=== PATIENT | male | born 1960 | race Caucasian/White ===

== ENCOUNTER 2019-04-10 09:56 | Inpatient (IN) | payer MEDICAID, SELFPAY ==
[~2019-04-10] VITALS: Ht 180.3 cm; Wt 105.8 kg
[2019-04-14 07:19] VITALS: BP 120/79
== END 2019-04-14 13:24 | disposition home or self-care (01) | DRG 433 ==
LOC: ED 12:22 → EDIP 13:24 → 4EST 15:11
PROVIDERS: ADMIT Internal Medicine; ATTEND Internal Medicine
DX: K70.10 Alcoholic hepatitis without ascites (principal); F10.231 Alcohol dependence with withdrawal delirium; E87.2 Acidosis; G62.1 Alcoholic polyneuropathy; E87.6 Hypokalemia; R73.9 Hyperglycemia, unspecified; D75.89 Other specified diseases of blood and blood-forming organs; D72.819 Decreased white blood cell count, unspecified; D69.6 Thrombocytopenia, unspecified; D64.9 Anemia, unspecified; I10 Essential (primary) hypertension; M10.9 Gout, unspecified; K29.70 Gastritis, unspecified, without bleeding; R56.9 Unspecified convulsions; S01.512A Laceration without foreign body of oral cavity, initial encounter; X58.XXXA Exposure to other specified factors, initial encounter; Z91.14 Patient's other noncompliance with medication regimen; Y93.89 Activity, other specified; Y92.89 Other specified places as the place of occurrence of the external cause; Y99.8 Other external cause status
CPT/HCPCS: 36415; 96361; 99291; J7042; 80053; 80069; 80074; 80307; 82140; 82607; 82803; 83605; 83690; 83735; 84100; 85025; 85610; 93005; 96365; 96366; 96375; G0378; J2405; J3411; J3475; J3480; C9113; J2060; J7030; J7050

== ENCOUNTER 2019-10-17 08:03 | Inpatient (IN) | payer MEDICAID ==
[~2019-10-17] VITALS: Ht 180.3 cm; Wt 104.1 kg
[~2019-10-17 08:03] MED LIST: CHLO10CA6 PO; FOLI-17 PO; GABA300C10 PO; LISI-167 PO; PANT40TA5 PO; PRED-402 PO; THIA100T67 PO
--- NOTE | 2019-10-17 08:07 | NUR ---
BIB EMS FROM [facility] FOR C/O PALPITATIONS STARTED "A LONG TIME AGO". PT ALSO SAYS IT ALL STARTED W/ COUGH AND CONGESTION. WAS DX W/ PNA. WAS GIVEN 4 ABX LAST ONE WAS LEVOFLOXACIN. HAS ALREADY BEEN ON LEVAQUIN, BACTRIM, AND AUGMENTIN W/O RELIEF. STILL HAVING COUGH, CONGESTION. PALPITATIONS SHOWS A FIB. DENIES HX. NOT ON ANTICOAGS. DENIES CP. C/O SOB. VS PERIOPERATIVE MANAGER BS 113, BP 173/100, HR 120-180. MONITORS APPLIED. EKG COMPLETED. PT RESTING ON GURNEY. +COUGH NOTED. DESTINEY VILLARREAL AT BEDSIDE.
[2019-10-17] MEDS ORDERED: AMLO10TA8 PO (08:22)
[2019-10-17] MEDS ORDERED: GABA600T7 PO (08:22)
[2019-10-17] MEDS ORDERED: BENZ100C PO (08:22)
[2019-10-17] MEDS ORDERED: FLUT1DIS IH (08:22)
[2019-10-17] MEDS ORDERED: ALLO300T PO (08:22)
[2019-10-17] MEDS ORDERED: OMEP-110 PO (08:22)
--- NOTE | 2019-10-17 08:24 | NUR ---
PER DESTINEY VILLARREAL NO NEED FOR BLOOD CULTURES AT THIS TIME.
[2019-10-17 08:39] LABS: BASOPHILS # (AUTO) 0.03 x10^3/uL (0-0.1); BASOPHILS % (AUTO) 0 % (0-1); EOSINOPHILS # (AUTO) 0.06 x10^3/uL (0-0.4); EOSINOPHILS % (AUTO) 1 % (1-7); LYMPHOCYTES # (AUTO) 1.09 x10^3/uL (1-3.4); LYMPHOCYTES % (AUTO) 11 % (22-44); MD NO; MEAN CORPUSCULAR HEMOGLOBIN 30.2 pg (27.5-34.5); MEAN CORPUSCULAR HGB CONC 32.7 g/dL (33.2-36.2); MEAN CORPUSCULAR VOLUME 92.4 fL (81-97); MEAN PLATELET VOLUME 7.9 fL (7.4-10.4); MONOCYTES % (AUTO) 6 % (2-9); NEUTROPHILS # (AUTO) 8.47 x10^3/uL (1.8-6.8); NEUTROPHILS % (AUTO) 83 % (42-75); PLATELET COUNT 195 x10^3/uL (130-400); RED CELL DISTRIBUTION WIDTH 14.8 % (9.4-14.8)
[2019-10-17 08:48] LABS: INTERNATIONAL NORMALIZED RATIO 0.96 (0.93-1.1); PROTHROMBIN TIME 10.2 Seconds (9.6-11.5)
[2019-10-17 08:51] LABS: ALBUMIN 3.6 g/dL (3.4-5.0); ANION GAP 9 mmol/L (5-15); CALCIUM 8.6 mg/dL (8.5-10.1); CHLORIDE 103 mmol/L (98-107)
--- NOTE | 2019-10-17 08:54 | NUR ---
REPORT GIVEN TO ALEXANDRIA RODNEY.
[2019-10-17 08:55] LABS: CREATININE 0.73 mg/dL (0.7-1.3); TROPONIN I < 0.015 ng/mL (0.000-0.045)
--- NOTE | 2019-10-17 09:53 | NUR ---
PT UP TO RESTROOM, NO ASSISTANCE NECESSARY. UPDATED ON PLAN OF CARE. VERBALIZES UNDERSTANDING, DENIES ANY FURTHER NEEDS OR CONCERNS AT THIS TIME. CALL LIGHT IN REACH.
[2019-10-17] MEDS ORDERED: DILTIAZEM 5 MG/ML, 10ML ONE (11:54)
[2019-10-17] MEDS ORDERED: ASPIRIN 81 MG TABLET CHEW ONE (11:54)
[2019-10-17] MEDS ORDERED: LORazepam 2 MG/ML, 1ML IVPush STA (11:58)
[2019-10-17] MEDS ORDERED: DILTIAZEM 5 MG/ML, 5ML IV ONE (12:00)
[2019-10-17] MEDS ORDERED: ASPIRIN 81 MG TABLET CHEW PO ONE (12:00)
[2019-10-17] MEDS ORDERED: HEPARIN 5,000 UNITS/ML, 1ML IV ONE ×2 (12:00→16:05)
[2019-10-17] MEDS ORDERED: HEPARIN 25,000 UNITS/250ML PMX 250 ML IV PRN (12:00)
[2019-10-17] MEDS ORDERED: LORazepam 2 MG/ML, 1ML ONE (12:00)
[2019-10-17] MEDS: DILTIAZEM 125 MG in SODIUM CHLORIDE 0.9% 100 ML IV SCH ×2 (12:25→21:50)
[2019-10-17] MEDS ORDERED: CHLORDIAZEPOXIDE 10 MG CAPSULE PO PRN (12:30)
[2019-10-17] MEDS ORDERED: morphine SULFATE 10 MG/ML, 1ML IVPush PRN (12:30)
[2019-10-17] MEDS ORDERED: CHLORDIAZEPOXIDE 25 MG CAPSULE PO PRN ×3 (12:30)
[2019-10-17] MEDS ORDERED: FUROSEMIDE 40 MG/4 ML IV ONE (12:30)
[2019-10-17] MEDS ORDERED: LORazepam 2 MG/ML, 1ML IVPush ONE (12:30)
[2019-10-17 12:42] LABS: ALBUMIN 3.6 g/dL (3.4-5.0)
--- NOTE | 2019-10-17 12:50 | NUR ---
REPORT TO CRISSY MEDINA RN. PT UPDATED ON PLAN OF CARE. SECOND IV STARTED FOR HEPARIN DRIP. PT DENIES ANY NEEDS OR CONCERNS AT THIS TIME. CALL LIGHT IN REACH. AWAITING TRANSPORT AT THIS TIME.
[2019-10-17 12:53] LABS: ALANINE AMINOTRANSFERASE 29 U/L (12-78); ALKALINE PHOSPHATASE 113 U/L (45-117); BILIRUBIN, DIRECT 0.2 mg/dL (0.1-0.2); BILIRUBIN,INDIRECT 0.5 mg/dL (0.0-2.0); BILIRUBIN,TOTAL 0.7 mg/dL (0.2-1.0); TOTAL PROTEIN 8.3 g/dL (6.4-8.2)
[2019-10-17] MEDS ORDERED: FUROSEMIDE 40 MG/4 ML ONE (12:53)
[2019-10-17 14:15] VITALS: BP 120/63
[2019-10-17 15:59] LABS: TROPONIN I < 0.015 ng/mL (0.000-0.045)
[2019-10-17 17:17] LABS: AMPHETAMINE SCREEN, URINE Negative (Negative); BARBITURATE SCREEN, URINE Negative (Negative); BENZODIAZEPINE SCREEN, URINE Negative (Negative); CANNABINOID SCREEN, URINE Negative (Negative); COCAINE SCREEN, URINE Negative (Negative); METHADONE SCREEN, URINE Negative (Negative); OPIATE SCREEN, URINE Negative (Negative)
[2019-10-17 18:36] VITALS: BP 130/81
[2019-10-17] MEDS: METOPROLOL TARTRATE 25 MG TABLET PO SCH (18:37)
[2019-10-17 20:06] LABS: TROPONIN I < 0.015 ng/mL (0.000-0.045)
[2019-10-17 20:29] VITALS: BP 146/84
[2019-10-17] MEDS: HEPARIN 5,000 UNITS/ML, 1ML IV PRN (23:00)
[2019-10-18 01:42] VITALS: BP 122/71
[2019-10-18 05:24] LABS: BASOPHILS # (AUTO) 0.03 x10^3/uL (0-0.1); BASOPHILS % (AUTO) 1 % (0-1); EOSINOPHILS # (AUTO) 0.04 x10^3/uL (0-0.4); EOSINOPHILS % (AUTO) 1 % (1-7); LYMPHOCYTES # (AUTO) 0.71 x10^3/uL (1-3.4); LYMPHOCYTES % (AUTO) 13 % (22-44); MD NO; MEAN CORPUSCULAR VOLUME 90.8 fL (81-97); MEAN PLATELET VOLUME 8.6 fL (7.4-10.4); MONOCYTES # (AUTO) 0.63 x10^3/uL (0.2-0.8); MONOCYTES % (AUTO) 11 % (2-9); NEUTROPHILS # (AUTO) 4.26 x10^3/uL (1.8-6.8); NEUTROPHILS % (AUTO) 75 % (42-75); PLATELET COUNT 144 x10^3/uL (130-400); RED BLOOD COUNT 4.34 x10^6/uL (4.38-5.82)
[2019-10-18 05:27] LABS: ANION GAP 8 mmol/L (5-15); CALCIUM 8.5 mg/dL (8.5-10.1); CHLORIDE 102 mmol/L (98-107)
[2019-10-18 05:30] LABS: CHOL/HDL RATIO 3.6; CHOLESTEROL, TOTAL 193 mg/dL (140-239); CREATININE 0.76 mg/dL (0.7-1.3); HDL CHOL % 27 % (26-37); HDL CHOLESTEROL (DIRECT) 53 mg/dL (40-60); LDL CHOLESTEROL,CALCULATED 119 mg/dL (54-169); LDL/HDL RATIO 2.2 (0.5-3.0); TRIGLYCERIDES 105 mg/dL (50-200); VLDL CHOLESTEROL 21 mg/dL (0-25)
[2019-10-18] MEDS: HEPARIN 5,000 UNITS/ML, 1ML IV PRN (05:38)
[2019-10-18] MEDS: ACETAMINOPHEN 325 MG TABLET PO PRN ×2 (05:41→21:50)
[2019-10-18] MEDS: METOPROLOL TARTRATE 25 MG TABLET PO SCH ×4 (05:42→21:48)
[2019-10-18 07:50] VITALS: BP 100/66
[2019-10-18] MEDS: THIAMINE 100MG TABLET PO SCH (09:36)
[2019-10-18] MEDS: FUROSEMIDE 40 MG/4 ML IV SCH (09:36)
[2019-10-18] MEDS: FOLIC ACID 1 MG TABLET PO SCH (09:37)
[2019-10-18] MEDS: APIXABAN 5 MG TABLET PO SCH ×2 (10:37→21:48)
[2019-10-18] MEDS ORDERED: ALBUTEROL SULFATE 2.5 MG/3 ML ONE (10:52)
[2019-10-18] MEDS ORDERED: ALBUTEROL SULFATE 2.5 MG/3 ML NPPB PRN (12:30)
[2019-10-18 14:25] VITALS: BP 116/73
[2019-10-18] MEDS ORDERED: DIPHENHYDRAMINE 50 MG CAPSULE PO PRN (20:30)
[2019-10-18 20:58] VITALS: BP 110/77
[2019-10-19 03:59] VITALS: BP 141/100
[2019-10-19] MEDS: METOPROLOL TARTRATE 25 MG TABLET PO SCH (04:22)
[2019-10-19 07:17] VITALS: BP 106/70
[2019-10-19] MEDS ORDERED: REGADENOSON 0.4 MG/5 ML SYRINGE ONE (08:37)
[2019-10-19] MEDS: APIXABAN 5 MG TABLET PO SCH ×2 (10:24→20:55)
[2019-10-19] MEDS: FUROSEMIDE 40 MG/4 ML IV SCH (10:25)
[2019-10-19] MEDS: FOLIC ACID 1 MG TABLET PO SCH (10:26)
[2019-10-19] MEDS: METOPROLOL SUCCINATE 100 MG TAB.ER.24H PO SCH (10:28)
[2019-10-19] MEDS: THIAMINE 100MG TABLET PO SCH (10:29)
[2019-10-19] MEDS: ACETAMINOPHEN 325 MG TABLET PO PRN (11:54)
[2019-10-19] MEDS: FLUTICASONE NASAL SPRAY 16GM NAS SCH (12:30)
[2019-10-19] MEDS: PANTOPROZOLE 40MG TABLET PO SCH (12:50)
[2019-10-19] MEDS: LORATADINE 10 MG TABLET PO SCH (12:50)
[2019-10-19 13:03] VITALS: BP 121/81
[2019-10-19 15:30] VITALS: BP 109/77
[2019-10-19 19:23] VITALS: BP 124/78
[2019-10-19] MEDS: GUAIFENESIN ER 600 MG TABLET PO SCH (20:54)
[2019-10-19] MEDS: DIPHENHYDRAMINE 50 MG CAPSULE PO SCH (22:06)
[2019-10-20 01:40] VITALS: BP 115/80
[2019-10-20] MEDS ORDERED: DIGOXIN 0.25 MG/ML, 2ML IVPush ONE ×2 (02:00→08:23)
[2019-10-20] MEDS: PANTOPROZOLE 40MG TABLET PO SCH (06:25)
[2019-10-20] MEDS: METOPROLOL SUCCINATE 100 MG TAB.ER.24H PO SCH (06:25)
[2019-10-20 06:58] VITALS: BP 121/84
[2019-10-20] MEDS: DIGOXIN 0.25 MG/ML, 2ML IVPush SCH ×3 (08:58→22:30)
[2019-10-20] MEDS: FUROSEMIDE 40 MG/4 ML IV SCH (08:58)
[2019-10-20] MEDS: THIAMINE 100MG TABLET PO SCH (08:58)
[2019-10-20] MEDS: APIXABAN 5 MG TABLET PO SCH ×2 (08:58→22:30)
[2019-10-20] MEDS: LORATADINE 10 MG TABLET PO SCH (08:58)
[2019-10-20] MEDS: GUAIFENESIN ER 600 MG TABLET PO SCH ×2 (08:58→22:30)
[2019-10-20] MEDS: FOLIC ACID 1 MG TABLET PO SCH (08:59)
[2019-10-20] MEDS: FLUTICASONE NASAL SPRAY 16GM NAS SCH (11:50)
[2019-10-20] MEDS: ALLOPURINOL 300 MG TABLET PO SCH (11:50)
[2019-10-20 12:02] VITALS: BP 104/67
[2019-10-20 14:48] VITALS: BP 117/74
[2019-10-20 18:51] VITALS: BP 103/72
[2019-10-20] MEDS: GABAPENTIN 300 MG CAPSULE PO SCH (22:30)
[2019-10-20] MEDS: DIPHENHYDRAMINE 50 MG CAPSULE PO SCH (22:30)
[2019-10-21 01:53] VITALS: BP 109/68
[2019-10-21 05:19] LABS: BASOPHILS # (AUTO) 0.02 x10^3/uL (0-0.1); BASOPHILS % (AUTO) 0 % (0-1); EOSINOPHILS # (AUTO) 0.15 x10^3/uL (0-0.4); EOSINOPHILS % (AUTO) 3 % (1-7); LYMPHOCYTES # (AUTO) 1.21 x10^3/uL (1-3.4); LYMPHOCYTES % (AUTO) 24 % (22-44); MD NO; MEAN CORPUSCULAR HEMOGLOBIN 30.6 pg (27.5-34.5); MEAN CORPUSCULAR HGB CONC 33.4 g/dL (33.2-36.2); MEAN CORPUSCULAR VOLUME 91.5 fL (81-97); MEAN PLATELET VOLUME 8.5 fL (7.4-10.4); MONOCYTES # (AUTO) 0.71 x10^3/uL (0.2-0.8); MONOCYTES % (AUTO) 14 % (2-9); NEUTROPHILS % (AUTO) 59 % (42-75); PLATELET COUNT 143 x10^3/uL (130-400); RED BLOOD COUNT 4.98 x10^6/uL (4.38-5.82); RED CELL DISTRIBUTION WIDTH 14.5 % (9.4-14.8)
[2019-10-21 05:25] LABS: ANION GAP 8 mmol/L (5-15); CALCIUM 8.8 mg/dL (8.5-10.1); CHLORIDE 105 mmol/L (98-107)
[2019-10-21 05:41] LABS: CREATININE 0.74 mg/dL (0.7-1.3)
[2019-10-21] MEDS: METOPROLOL SUCCINATE 100 MG TAB.ER.24H PO SCH (06:00)
[2019-10-21] MEDS: PANTOPROZOLE 40MG TABLET PO SCH (06:00)
[2019-10-21 07:35] VITALS: BP 124/74
[2019-10-21] MEDS: ALLOPURINOL 300 MG TABLET PO SCH (08:08)
[2019-10-21] MEDS: APIXABAN 5 MG TABLET PO SCH (08:08)
[2019-10-21] MEDS: THIAMINE 100MG TABLET PO SCH (08:08)
[2019-10-21] MEDS: GABAPENTIN 300 MG CAPSULE PO SCH (08:09)
[2019-10-21] MEDS: GUAIFENESIN ER 600 MG TABLET PO SCH (08:09)
[2019-10-21] MEDS: FOLIC ACID 1 MG TABLET PO SCH (08:09)
[2019-10-21] MEDS: LORATADINE 10 MG TABLET PO SCH (08:09)
[2019-10-21] MEDS: FLUTICASONE NASAL SPRAY 16GM NAS SCH (08:10)
[2019-10-21] MEDS ORDERED: POTASSIUM CHLORIDE 20 MEQ TAB.ER.PRT PO SCH (08:30)
[2019-10-21] MEDS ORDERED: FUROSEMIDE 40 MG TABLET PO SCH (09:00)
[2019-10-21] MEDS ORDERED: DIGOXIN 0.25 MG TABLET PO SCH (09:30)
[2019-10-21] MEDS ORDERED: LEVOFLOXACIN 750 MG TABLET PO SCH (09:30)
[2019-10-21] MEDS ORDERED: METO-95 PO (09:54)
[2019-10-21] MEDS ORDERED: FLUT16SP24 NAS (09:54)
[2019-10-21] MEDS ORDERED: LEVO750T26 PO (09:54)
[2019-10-21] MEDS ORDERED: APIX5TAB PO (09:54)
[2019-10-21] MEDS ORDERED: DIGO250T3 PO (09:54)
[2019-10-21] MEDS ORDERED: PRED20TA PO (09:54)
== END 2019-10-21 12:30 | disposition home or self-care (01) | DRG 309 ==
LOC: ED 11:58 → EDIP 11:59 → ED 12:08 → 5SO 16:00 → DCLOUNGE 10-21 12:28
PROVIDERS: ADMIT Internal Medicine Infectious Disease; ATTEND Hospitalist
DX: I48.91 Unspecified atrial fibrillation (principal); D68.69 Other thrombophilia; F10.239 Alcohol dependence with withdrawal, unspecified; I50.30 Unspecified diastolic (congestive) heart failure; E78.5 Hyperlipidemia, unspecified; Y90.9 Presence of alcohol in blood, level not specified; I08.1 Rheumatic disorders of both mitral and tricuspid valves; I11.0 Hypertensive heart disease with heart failure; I27.20 Pulmonary hypertension, unspecified; J42 Unspecified chronic bronchitis; K21.9 Gastro-esophageal reflux disease without esophagitis; M10.9 Gout, unspecified; Z87.891 Personal history of nicotine dependence; Z91.030 Bee allergy status
CPT/HCPCS: 36415; 71045; 78452; 80048; 80061; 80076; 80162; 80307; 82040; 83735; 83880; 84100; 84443; 84484; 85025; 85520; 85610; 85730; 87070; 87077; 87205; 93005; 93017; 93306; 96374; 96375; 99291; G0378; J1644; J1940; J2785; A9502; C9898; J1160; J2060; J7512

== ENCOUNTER 2019-12-30 11:52 | Emergency (ER) | payer MEDICAID ==
[~2019-12-30] VITALS: Ht 180.3 cm; Wt 102.6 kg
[~2019-12-30 11:52] MED LIST changes: +ALLO300T PO; +AMLO10TA8 PO; +APIX5TAB PO; +BENZ100C PO; +DIGO250T3 PO; +FLUT16SP24 NAS; +FLUT1DIS IH; +GABA600T7 PO; +LEVO750T26 PO; +METO-95 PO; +OMEP-110 PO; +PRED20TA PO
[2019-12-30 12:42] VITALS: BP 162/99
--- NOTE | 2019-12-30 13:02 | NUR ---
DRAMATIC DIRECTOR: PT AMBULATORY TO ROOM FROM LOBBY
--- NOTE | 2019-12-30 13:52 | NUR ---
PT D/C WITH D/C SUMMARY AND SCRIPTS. ALL QUESTIONS ANSWERED. PT AMBULATES WITH SLOW AND STEADY GAIT WITH WALKER FOR D/C HOME WITH SPOUSE. PT DENIES ANY OTHER NEEDS PERTAINING TO THIS VISIT.
== END 2019-12-30 13:58 | disposition home or self-care (01) ==
LOC: ED 13:11
DX: B34.9 Viral infection, unspecified (principal); R05 Cough; I10 Essential (primary) hypertension; I48.91 Unspecified atrial fibrillation
CPT/HCPCS: 71045; 99283

== ENCOUNTER 2020-08-20 21:03 | Emergency (ER) | payer MEDICAID ==
[~2020-08-20] VITALS: Ht 180.3 cm; Wt 100.0 kg
[~2020-08-20 21:03] MED LIST changes: +AMLO-211 PO; -AMLO10TA8 PO; -PANT40TA5 PO; +PANT40TA6 PO
--- NOTE | 2020-08-20 21:13 | NUR ---
PT BIB [facility] FOR ETOH PT WAS OUTSIDE OF [facility], LAYING IN THE STREET. PT REPORTS DRINKING BEERS TODAY STATES "I HAD 100" PT DENIES ANY FALLS, WAS HYPOTENSIVE UPON [facility] ARRIVAL RECEIVED 550MLS NS ENROUTE. PT HAS H OF A-FIB AND GOUT., PT PLACED ON SPO2/BP/ECG MONITORING. CHEY ELIZABETH MD AT BS FOR EVAL AND POC
--- NOTE | 2020-08-20 21:28 | NUR ---
pt to ct via cynthia at this time. nad, no change in condition, wctm.
[2020-08-20] MEDS ORDERED: SODIUM CHLORIDE FLUSH 10ML SYR IVF ONE (21:30)
[2020-08-20] MEDS ORDERED: SODIUM CHLORIDE 0.9% 1,000ML IVBOLUS ONE (21:30)
[2020-08-20 22:00] LABS: BASOPHILS % (AUTO) 1 % (0-1); EOSINOPHILS % (AUTO) 3 % (1-7); LYMPHOCYTES % (AUTO) 33 % (22-44); MEAN CORPUSCULAR HEMOGLOBIN 31.7 pg (27.5-34.5); MEAN CORPUSCULAR HGB CONC 33.1 g/dL (33.2-36.2); MEAN PLATELET VOLUME 8.2 fL (7.4-10.4); MONOCYTES % (AUTO) 10 % (2-9); NEUTROPHILS % (AUTO) 54 % (42-75); PLATELET COUNT 180 x10^3/uL (130-400); RED BLOOD COUNT 3.91 x10^6/uL (4.38-5.82)
[2020-08-20 22:02] LABS: MD NO
[2020-08-20 22:11] LABS: ALANINE AMINOTRANSFERASE 18 U/L (12-78); ALBUMIN 3.1 g/dL (3.4-5.0); ANION GAP 8 mmol/L (5-15); CALCIUM 7.9 mg/dL (8.5-10.1); CHLORIDE 103 mmol/L (98-107); CREATININE 0.82 mg/dL (0.7-1.3)
[2020-08-20 22:21] LABS: ALKALINE PHOSPHATASE 99 U/L (45-117); BILIRUBIN,TOTAL 0.3 mg/dL (0.2-1.0); TOTAL PROTEIN 6.7 g/dL (6.4-8.2)
--- NOTE | 2020-08-21 | NUR ---
pt nad, resting on hospital bed, appears comfortable, eyes closed, even and unlabored respirations. wctm. waiting for admit bed
[2020-08-21 00:55] VITALS: BP 99/66
--- NOTE | 2020-08-21 00:56 | NUR ---
Patient/Caregiver given discharge instructions and they have confirmed that they understand the instructions. Patient ambulatory with steady gait WITH CANE THAT HE USES AT BASELINE. PT NAD, DENIES ADDITIONAL QUESTIONS OR NEEDS AT THIS TIME. PROVIDED TAXI VOUCHER, NO PERSONAL BELONGINGS LEFT IN ROOM AFTER DC.
--- NOTE | 2020-08-21 01:49 | NUR ---
PT REFUSED TO LEAVE DC DESK STATING THAT "MY MEDS AND WHEELCHAIR WERE WITH ME", RN INFORMED PT THAT THERE WASNT A WHEELCHAIR BROUGHT IN WITH HIM AND THERE WAS ONLY A CANE. PT NAD, PT STATING "THIS IS RIDICULOUS, WHERE ARE MY MEDICAL RECORDS" RN INFORMED PT THE PROCESS TO RECEIVE MEDICAL RECORDS.
== END 2020-08-21 00:57 ==
LOC: ED 22:46
DX: S09.90XA Unspecified injury of head, initial encounter (principal); F10.229 Alcohol dependence with intoxication, unspecified; I10 Essential (primary) hypertension; I48.20 Chronic atrial fibrillation, unspecified; Y90.0 Blood alcohol level of less than 20 mg/100 ml; W19.XXXA Unspecified fall, initial encounter; Y93.89 Activity, other specified; Y92.89 Other specified places as the place of occurrence of the external cause; Y99.8 Other external cause status
CPT/HCPCS: 36415; 70450; 80053; 80320; 84443; 85025; 93005; 96360; 96361; 99285; J7030; G0480

== ENCOUNTER 2021-05-27 17:33 | Inpatient (IN) | payer MEDICAID ==
[~2021-05-27] VITALS: Ht 180.3 cm; Wt 105.8 kg
[~2021-05-27 17:33] MED LIST changes: -FOLI-17 PO; +FOLI1TAB32 PO
--- NOTE | 2021-05-27 17:45 | NUR ---
[email or web address]
[2021-05-27] MEDS ORDERED: ACETAMINOPHEN 500 MG TABLET ONE ×2 (17:57→18:22)
[2021-05-27] MEDS ORDERED: SODIUM CHLORIDE FLUSH 10ML SYR IVF ONE ×2 (18:00→18:30)
[2021-05-27] MEDS ORDERED: SODIUM CHLORIDE 0.9% 1,000ML IVBOLUS ONE (18:00)
[2021-05-27] MEDS ORDERED: ACETAMINOPHEN 500 MG TABLET PO ONE (18:00)
[2021-05-27] MEDS ORDERED: DILTIAZEM 5 MG/ML, 5ML ONE ×2 (18:11→18:43)
[2021-05-27] MEDS ORDERED: LORazepam 2 MG/ML, 1ML ONE (18:15)
--- NOTE | 2021-05-27 18:15 | NUR ---
PLACED ON PRECISION LATHE OPERATOR, PIVS PLACED ERP TO BEDSIDE 20MG OF DILTAZEM VERBAL ORDERS RECEIVED-ADMINISTERED IMMEDIATELY. HR TO 130 WITHIN 30 SECONDS LAB AT BEDSIDE FOR BLOOD CULTURES X 2, LACTIC, FULL SET OF LABS
--- NOTE | 2021-05-27 18:27 | NUR ---
ABX/APAP/ATIVAN ADMINISTERED PER EMAR AFTER BLOOD CULTURES DRAWN
[2021-05-27 18:30] LABS: BASOPHILS % (AUTO) 0 % (0-1); EOSINOPHILS % (AUTO) 0 % (1-7); LYMPHOCYTES % (AUTO) 4 % (22-44); MEAN CORPUSCULAR HEMOGLOBIN 30.4 pg (27.5-34.5); MEAN CORPUSCULAR HGB CONC 33.2 g/dL (33.2-36.2); MEAN PLATELET VOLUME 8.9 fL (7.4-10.4); MONOCYTES % (AUTO) 7 % (2-9); NEUTROPHILS % (AUTO) 89 % (42-75); PLATELET COUNT 123 x10^3/uL (130-400); RED BLOOD COUNT 4.23 x10^6/uL (4.38-5.82); RED CELL DISTRIBUTION WIDTH 20.1 % (9.4-14.8)
[2021-05-27] MEDS ORDERED: DILTIAZEM 5 MG/ML, 5ML IV ONE (18:30)
[2021-05-27] MEDS ORDERED: VANCOMYCIN PER PHARMACY MC ONE (18:30)
[2021-05-27] MEDS ORDERED: ACETAMINOPHEN 325 MG TABLET PO ONE (18:30)
[2021-05-27] MEDS ORDERED: PIPERACILLIN/TAZO 3.375 GM in DEXTROSE 5% 50 ML IVPB ONE (18:30)
[2021-05-27] MEDS ORDERED: VANCOMYCIN 2,500 MG in SODIUM CHLORIDE 0.9% 500 ML IV ONE (18:30)
[2021-05-27] MEDS ORDERED: LORazepam 2 MG/ML, 1ML IVPush ONE (18:30)
--- NOTE | 2021-05-27 18:43 | NUR ---
HR REBOUNDED TO MORE ERRATIC 130-170. ERP ASKED FOR DILTAZEM DRIP. ORDERS RECEIVED FOR ADDITIONAL 20MG OF DILT IVP
[2021-05-27 18:44] LABS: ALANINE AMINOTRANSFERASE 70 U/L (12-78); ALBUMIN 2.9 g/dL (3.4-5.0); ANION GAP 11 mmol/L (5-15); CHLORIDE 90 mmol/L (98-107); CREATININE 0.87 mg/dL (0.7-1.3)
[2021-05-27 18:48] LABS: ALKALINE PHOSPHATASE 96 U/L (45-117); BILIRUBIN,TOTAL 2.6 mg/dL (0.2-1.0); TOTAL PROTEIN 7.3 g/dL (6.4-8.2)
[2021-05-27] MEDS ORDERED: DILTIAZEM 5 MG/ML, 5ML IVPush ONE ×2 (19:00)
--- NOTE | 2021-05-27 19:20 | NUR ---
NEED FOR MORE IVF DISCUSSED WITH ERP IN R/T ELEVATED LACTATE : PLAN ONLY TO SLOWLY ADMIN FLUIDS PATIENTS SODIUM 120 AND HR, B/P STABLE
--- NOTE | 2021-05-27 19:40 | NUR ---
HR NOW 90-100 US AT BEDSIDE RLE CELLULITUS ENCIRCLED WITH SKIN MARKER AND TIMED PATIENT UPDATED ON ESTIMATED POC
[2021-05-27] MEDS ORDERED: SODIUM CHLORIDE 3% 500 ML IV PRN (20:00)
[2021-05-27] MEDS ORDERED: SODIUM CHLORIDE FLUSH 10ML SYR IVF PRN (20:00)
--- NOTE | 2021-05-27 20:33 | NUR ---
ATTEMPTED TO CALL REPORT X 1. INPATIENT RN UNAVAILABLE. TO CALL BACK SHORTLY
[2021-05-27] MEDS ORDERED: LORazepam 1MG TABLET PO PRN (21:00)
[2021-05-27] MEDS ORDERED: LABETALOL 5MG/ML, 20ML IVPush PRN (21:00)
[2021-05-27] MEDS ORDERED: VANCOMYCIN PER PHARMACY MC PRN (21:00)
[2021-05-27] MEDS: ENOXAPARIN 100 MG/ML SQ SCH (21:00)
[2021-05-27] MEDS ORDERED: POLYETHYLENE GLYCOL 17 GM PACKET PO PRN (21:00)
[2021-05-27] MEDS ORDERED: LORazepam 0.5MG TABLET PO PRN (21:00)
[2021-05-27] MEDS ORDERED: MELATONIN 5 MG TABLET PO PRN (21:00)
[2021-05-27] MEDS ORDERED: ONDANSETRON 2MG/ML, 2ML IVPush PRN (21:00)
[2021-05-27] MEDS ORDERED: morphine SULFATE 10 MG/ML, 1ML IVPush PRN (21:00)
[2021-05-27] MEDS ORDERED: LORazepam 2 MG/ML, 1ML IV PRN ×2 (21:00)
[2021-05-27 21:24] VITALS: BP 110/86
[2021-05-27] MEDS ORDERED: PHARMACOKINETIC MONITORING MC PRN (22:00)
[2021-05-27] MEDS: ACETAMINOPHEN 500 MG TABLET PO SCH (22:35)
[2021-05-27] MEDS: FAMOTIDINE 20 MG/2 ML IVPush SCH (22:36)
[2021-05-27] MEDS: OXYcodone IR 5MG TABLET PO PRN (22:36)
[2021-05-27] MEDS: CEFEPIME 2 GM in DEXTROSE 5% 100 ML IV SCH (22:38)
[2021-05-28] MEDS: SODIUM CHLORIDE 0.9% 1,000 ML IV SCH ×2 (00:18→12:30)
[2021-05-28] MEDS: ACETAMINOPHEN 500 MG TABLET PO SCH ×6 (01:00→20:13)
[2021-05-28 01:04] VITALS: BP 131/95
[2021-05-28 01:53] LABS: BASOPHILS % (AUTO) 0 % (0-1); EOSINOPHILS % (AUTO) 0 % (1-7); LYMPHOCYTES % (AUTO) 5 % (22-44); MEAN CORPUSCULAR HGB CONC 32.8 g/dL (33.2-36.2); MEAN PLATELET VOLUME 8.8 fL (7.4-10.4); MONOCYTES % (AUTO) 8 % (2-9); NEUTROPHILS % (AUTO) 87 % (42-75); PLATELET COUNT 101 x10^3/uL (130-400); RED CELL DISTRIBUTION WIDTH 20.1 % (9.4-14.8)
[2021-05-28 02:01] LABS: ANION GAP 9 mmol/L (5-15); CALCIUM 7.6 mg/dL (8.5-10.1); CHLORIDE 93 mmol/L (98-107); CREATININE 0.86 mg/dL (0.7-1.3)
[2021-05-28] MEDS: METOPROLOL 1 MG/ML, 5ML IVPush PRN ×2 (02:48→17:15)
[2021-05-28] MEDS ORDERED: DIGOXIN 0.25 MG/ML, 2ML IVPush ONE (06:00)
[2021-05-28] MEDS: VANCOMYCIN 2,000 MG in SODIUM CHLORIDE 0.9% 500 ML IV SCH ×2 (06:29→20:13)
[2021-05-28] MEDS: CEFEPIME 2 GM in DEXTROSE 5% 100 ML IV SCH ×3 (06:29→23:12)
[2021-05-28 07:08] LABS: ANION GAP 15 mmol/L (5-15); CALCIUM 7.7 mg/dL (8.5-10.1); CHLORIDE 92 mmol/L (98-107); CREATININE 1.06 mg/dL (0.7-1.3)
[2021-05-28 07:23] LABS: POTASSIUM,URINE RANDOM 23 mmol/L; SODIUM,URINE RANDOM 6 mmol/L
[2021-05-28 07:26] LABS: CHLORIDE,URINE RANDOM < 10 mmol/L
[2021-05-28 07:27] LABS: MICROSCOPIC INDICATED
[2021-05-28] MEDS: ENOXAPARIN 100 MG/ML SQ SCH ×2 (09:00→20:13)
[2021-05-28 09:11] VITALS: BP 112/76
[2021-05-28] MEDS: FAMOTIDINE 20 MG/2 ML IVPush SCH ×2 (09:32→20:13)
[2021-05-28] MEDS: THIAMINE 100MG TABLET PO SCH (09:32)
[2021-05-28 09:33] LABS: ANION GAP 10 mmol/L (5-15); CALCIUM 7.4 mg/dL (8.5-10.1); CHLORIDE 93 mmol/L (98-107)
[2021-05-28 09:34] LABS: CREATININE 1.02 mg/dL (0.7-1.3)
[2021-05-28] MEDS: DIGOXIN 0.25 MG/ML, 2ML IVPush SCH ×2 (13:09→18:17)
[2021-05-28 14:47] VITALS: BP 120/81
[2021-05-28] MEDS: METOPROLOL TARTRATE 50 MG TAB PO SCH ×2 (16:59→19:56)
[2021-05-28 17:16] VITALS: BP 134/99
[2021-05-28 20:21] VITALS: BP 120/79
[2021-05-29] MEDS: ACETAMINOPHEN 500 MG TABLET PO SCH ×6 (00:13→21:52)
[2021-05-29 02:43] VITALS: BP 148/85
[2021-05-29] MEDS: METOPROLOL TARTRATE 50 MG TAB PO SCH ×3 (05:15→21:53)
[2021-05-29] MEDS: CEFEPIME 2 GM in DEXTROSE 5% 100 ML IV SCH ×3 (05:16→21:53)
[2021-05-29] MEDS: OXYcodone IR 5MG TABLET PO PRN (05:16)
[2021-05-29] MEDS: SODIUM CHLORIDE 0.9% 1,000 ML IV SCH (05:17)
[2021-05-29 07:39] VITALS: BP 137/80
[2021-05-29 07:50] LABS: BASOPHILS % (AUTO) 0 % (0-1); EOSINOPHILS % (AUTO) 0 % (1-7); LYMPHOCYTES % (AUTO) 5 % (22-44); MEAN CORPUSCULAR HEMOGLOBIN 29.8 pg (27.5-34.5); MEAN CORPUSCULAR HGB CONC 32.5 g/dL (33.2-36.2); MEAN PLATELET VOLUME 9.6 fL (7.4-10.4); MONOCYTES % (AUTO) 7 % (2-9); NEUTROPHILS % (AUTO) 88 % (42-75); PLATELET COUNT 105 x10^3/uL (130-400); RED BLOOD COUNT 4.12 x10^6/uL (4.38-5.82); RED CELL DISTRIBUTION WIDTH 20.2 % (9.4-14.8)
[2021-05-29 07:55] LABS: ANION GAP 12 mmol/L (5-15); CALCIUM 7.8 mg/dL (8.5-10.1); CHLORIDE 93 mmol/L (98-107); CREATININE 0.95 mg/dL (0.7-1.3)
[2021-05-29 08:00] LABS: VANCOMYCIN,RANDOM 27.2 mcg/mL
[2021-05-29] MEDS: ENOXAPARIN 100 MG/ML SQ SCH ×2 (09:00→21:52)
[2021-05-29] MEDS: THIAMINE 100MG TABLET PO SCH (09:57)
[2021-05-29] MEDS: VANCOMYCIN 2,000 MG in SODIUM CHLORIDE 0.9% 500 ML IV SCH (09:57)
[2021-05-29] MEDS: FAMOTIDINE 20 MG/2 ML IVPush SCH ×2 (09:58→21:53)
[2021-05-29 12:26] VITALS: BP 109/76
[2021-05-29] MEDS: FUROSEMIDE 20 MG TABLET PO SCH (17:03)
[2021-05-29 20:17] VITALS: BP 107/72
[2021-05-30 00:53] VITALS: BP 97/64
[2021-05-30] MEDS: ACETAMINOPHEN 500 MG TABLET PO SCH ×6 (04:00→20:45)
[2021-05-30] MEDS: CEFEPIME 2 GM in DEXTROSE 5% 100 ML IV SCH ×3 (05:08→20:45)
[2021-05-30 07:41] VITALS: BP 113/79
[2021-05-30] MEDS: VANCOMYCIN 1,800 MG in SODIUM CHLORIDE 0.9% 250 ML IV SCH (09:38)
[2021-05-30] MEDS: POTASSIUM CHLORIDE 20 MEQ TAB.ER.PRT PO SCH (09:38)
[2021-05-30] MEDS: THIAMINE 100MG TABLET PO SCH (09:39)
[2021-05-30] MEDS: FAMOTIDINE 20 MG/2 ML IVPush SCH (09:39)
[2021-05-30] MEDS: FUROSEMIDE 20 MG TABLET PO SCH (09:39)
[2021-05-30] MEDS: METOPROLOL TARTRATE 50 MG TAB PO SCH ×3 (09:39→20:45)
[2021-05-30] MEDS: ENOXAPARIN 100 MG/ML SQ SCH ×2 (09:39→20:44)
[2021-05-30] MEDS: DIGOXIN 0.25 MG TABLET PO SCH (09:39)
[2021-05-30 13:44] VITALS: BP 116/78
[2021-05-30] MEDS: FUROSEMIDE 40 MG/4 ML IV SCH (17:50)
[2021-05-30 20:00] VITALS: BP 112/66
[2021-05-30] MEDS: FAMOTIDINE 20 MG TABLET PO SCH (20:45)
[2021-05-31] MEDS: VANCOMYCIN 1,800 MG in SODIUM CHLORIDE 0.9% 250 ML IV SCH (01:04)
[2021-05-31 01:11] VITALS: BP 108/73
[2021-05-31] MEDS: ACETAMINOPHEN 500 MG TABLET PO SCH ×4 (01:19→13:44)
[2021-05-31] MEDS: CEFEPIME 2 GM in DEXTROSE 5% 100 ML IV SCH ×2 (05:06→14:00)
[2021-05-31 06:29] LABS: BASOPHILS % (AUTO) 0 % (0-1); EOSINOPHILS % (AUTO) 1 % (1-7); LYMPHOCYTES % (AUTO) 10 % (22-44); MEAN CORPUSCULAR HEMOGLOBIN 30.1 pg (27.5-34.5); MONOCYTES % (AUTO) 14 % (2-9); NEUTROPHILS % (AUTO) 75 % (42-75); PLATELET COUNT 128 x10^3/uL (130-400); RED BLOOD COUNT 3.76 x10^6/uL (4.38-5.82); RED CELL DISTRIBUTION WIDTH 20.3 % (9.4-14.8)
[2021-05-31 06:36] LABS: CHLORIDE 103 mmol/L (98-107)
[2021-05-31 06:42] LABS: ANION GAP 7 mmol/L (5-15); CALCIUM 7.8 mg/dL (8.5-10.1); CREATININE 0.72 mg/dL (0.7-1.3)
[2021-05-31] MEDS: FAMOTIDINE 20 MG TABLET PO SCH (09:18)
[2021-05-31] MEDS: DIGOXIN 0.25 MG TABLET PO SCH (09:18)
[2021-05-31] MEDS: POTASSIUM CHLORIDE 20 MEQ TAB.ER.PRT PO SCH (09:18)
[2021-05-31] MEDS: ENOXAPARIN 100 MG/ML SQ SCH (09:19)
[2021-05-31] MEDS: METOPROLOL TARTRATE 50 MG TAB PO SCH ×2 (09:19→16:00)
[2021-05-31] MEDS: THIAMINE 100MG TABLET PO SCH (09:20)
[2021-05-31] MEDS: FUROSEMIDE 40 MG/4 ML IV SCH (09:32)
[2021-05-31 10:00] VITALS: BP 116/77
[2021-05-31] MEDS ORDERED: DIGO250T3 PO (11:37)
[2021-05-31] MEDS ORDERED: METO-95 PO (11:37)
[2021-05-31] MEDS ORDERED: DOXY100T23 PO (11:38)
== END 2021-05-31 16:47 | disposition home or self-care (01) | DRG 871 ==
LOC: ED 18:00 → EDIP 20:47 → 5SO 21:15
PROVIDERS: ADMIT Internal Medicine; ATTEND Hospitalist
PROC: 0W9G3ZZ Drainage of Peritoneal Cavity, Percutaneous Approach (ICD-10-PCS; principal; 2021-05-29)
DX: A41.9 Sepsis, unspecified organism (principal); I50.33 Acute on chronic diastolic (congestive) heart failure; E87.1 Hypo-osmolality and hyponatremia; F10.239 Alcohol dependence with withdrawal, unspecified; I48.20 Chronic atrial fibrillation, unspecified; L03.115 Cellulitis of right lower limb; R18.8 Other ascites; D69.6 Thrombocytopenia, unspecified; E66.01 Morbid (severe) obesity due to excess calories; I11.0 Hypertensive heart disease with heart failure; I25.10 Atherosclerotic heart disease of native coronary artery without angina pectoris; Z20.822 Contact with and (suspected) exposure to COVID-19; R14.0 Abdominal distension (gaseous); Z91.14 Patient's other noncompliance with medication regimen; Z68.32 Body mass index [BMI] 32.0-32.9, adult; Z91.19 Patient's noncompliance with other medical treatment and regimen; Z91.030 Bee allergy status
CPT/HCPCS: 36415; 49083; 71045; 76700; 80048; 80053; 80202; 80320; 81001; 82042; 82436; 83036; 83605; 83735; 83880; 84100; 84133; 84300; 84484; 85025; 87040; 87070; 87205; 89051; 93005; 93306; 96361; 96374; 96375; 99291; G0378; J1650; J1940; J2543; J3370; U0005; G0480; J1160; J2060; J7030; J7040; J7050; U0003

== ENCOUNTER 2021-06-11 16:21 | Emergency (ER) | payer MEDICAID ==
[~2021-06-11] VITALS: Ht 182.9 cm; Wt 94.5 kg
[~2021-06-11 16:21] MED LIST changes: +DOXY100T23 PO
[2021-06-11 17:11] LABS: BASOPHILS % (AUTO) 1 % (0-1); EOSINOPHILS % (AUTO) 2 % (1-7); LYMPHOCYTES % (AUTO) 23 % (22-44); MEAN CORPUSCULAR HEMOGLOBIN 30.3 pg (27.5-34.5); MEAN CORPUSCULAR HGB CONC 32.8 g/dL (33.2-36.2); MEAN PLATELET VOLUME 7.5 fL (7.4-10.4); MONOCYTES % (AUTO) 10 % (2-9); NEUTROPHILS % (AUTO) 64 % (42-75); PLATELET COUNT 271 x10^3/uL (130-400); RED CELL DISTRIBUTION WIDTH 20.3 % (9.4-14.8)
[2021-06-11 17:21] LABS: ALBUMIN 2.5 g/dL (3.4-5.0); ANION GAP 8 mmol/L (5-15); CALCIUM 8.3 mg/dL (8.5-10.1); CHLORIDE 105 mmol/L (98-107)
[2021-06-11 17:29] LABS: CREATININE 0.64 mg/dL (0.7-1.3)
[2021-06-11 18:11] LABS: HCT (SEDRATE) 32.3 % (39.2-51.8)
[2021-06-11 20:43] VITALS: BP 144/70
[2021-06-11] MEDS ORDERED: SULFAMETH./TRIMETHOPRIM DS 800MG/160MG TABLET PO ONE (22:00)
[2021-06-11] MEDS ORDERED: CEPHALEXIN 500 MG CAPSULE PO ONE (22:00)
[2021-06-11] MEDS ORDERED: SULFAMETH./TRIMETHOPRIM DS 800MG/160MG TABLET ONE (22:22)
[2021-06-11] MEDS ORDERED: CEPHALEXIN 500 MG CAPSULE ONE (22:22)
[2021-06-11] MEDS ORDERED: NEOSPORIN OINT. PKT 1 PACKET ONE (22:29)
== END 2021-06-11 23:09 | disposition home or self-care (01) ==
LOC: ED 16:26
DX: L03.116 Cellulitis of left lower limb (principal); I10 Essential (primary) hypertension; I48.91 Unspecified atrial fibrillation; Z59.0 Homelessness
CPT/HCPCS: 36415; 80048; 82040; 85025; 85651; 86140; 99284

== ENCOUNTER → 2021-06-14 | Outpatient (CLI) | payer MEDICAID | END | disposition home or self-care (01) | LOC: WOUND 12:36 | PROVIDERS: ATTEND Internal Medicine | DX: L03.115 Cellulitis of right lower limb (principal); S81.801A Unspecified open wound, right lower leg, initial encounter; I11.0 Hypertensive heart disease with heart failure; I50.9 Heart failure, unspecified; I48.91 Unspecified atrial fibrillation; G62.1 Alcoholic polyneuropathy; E66.09 Other obesity due to excess calories; F10.10 Alcohol abuse, uncomplicated; Z68.29 Body mass index [BMI] 29.0-29.9, adult; Z91.19 Patient's noncompliance with other medical treatment and regimen; Z87.891 Personal history of nicotine dependence; X58.XXXA Exposure to other specified factors, initial encounter; Y93.89 Activity, other specified; Y92.89 Other specified places as the place of occurrence of the external cause; Y99.8 Other external cause status | CPT/HCPCS: 11042; 11045; 99215 ==